=== PATIENT | female | born 1960 | race Caucasian/White ===

== ENCOUNTER 2018-04-02 10:31 | Outpatient (CLI) | payer MEDICARE | END 2018-04-02 10:32 | disposition critical access hospital (66) | LOC: EMS 10:31 | PROVIDERS: ATTEND Surgery | DX: R41.82 Altered mental status, unspecified (principal) | CPT/HCPCS: A0425; A0429 ==

== ENCOUNTER 2018-04-02 11:08 | Emergency (ER) | payer MEDICARE ==
[2018-04-02] MEDS ORDERED: ERYTHROMYCIN OPHTH OINT 1 GM TUBE RIGHTEYE STA (11:19)
--- NOTE | 2018-04-02 11:22 | ED Physician Documentation ---
History of Present Illness - Stated complaint Stated Complaint: SPIDER BITES - Additonal information Additional information: hx from pt 57 f BIBA for 3 concerns 1) right eye dc, no contacts, no trauma 2) sore throat and swollen nodes 3) skin lesions to face and dry skin to arms - has spiders in house but she has not seen them, wonders if they might be mites no fever Review of Systems Constitutional: denies: Fever Eyes: reports: Discharge, Irritation Throat: reports: Sore throat Skin: reports: Lesions Immunocompromised: denies: Immunocompromised PD PAST MEDICAL HISTORY - Past Medical History Psych: Depression, Anxiety, Post traumatic stress disorder Musculoskeletal: Chronic back pain - Past Surgical History Past Surgical History: Yes - Present Medications Home Medications: Ambulatory Orders Medication Instructions Recorded Confirmed Gabapentin 800 mg PO 04/10/14 09/03/14 Gabapentin 800 mg PO TID #30 tablet 04/10/14 09/03/14 Prazosin HCl 5 mg PO 04/10/14 09/03/14 Quetiapine Fumarate 300 mg PO 04/10/14 09/03/14 clonazePAM [Clonazepam] 1 mg PO 04/10/14 09/03/14 lamoTRIgine [Lamictal] 200 mg PO 04/10/14 09/03/14 Clindamycin [Cleocin] 300 mg PO Q6H 5 Days capsule 09/03/14 Erythromycin Base [Erythromycin] 1 applic OP Q4H #1 tub 04/02/18 Mupirocin Calcium [Bactroban] 1 applic TP BID #30 cream..g. 04/02/18 - Allergies Allergies/Adverse Reactions: Allergies Allergy/AdvReac Type Severity Reaction Status Date / Time Penicillins Allergy Unknown Verified 04/10/14 18:23 - Social History Does the pt smoke?: No Smoking Status: Never smoker Does the pt drink ETOH?: No Does the pt have substance abuse?: No - Immunizations Immunizations are current?: No PD ED PE NORMAL - Vitals Vital signs reviewed: Yes - HEENT HEENT: PERRL (globes soft, R eye injected with mucous dc), Moist mucous membranes. No: Pharynx benign (erythema s exudate) - Neck Neck: Supple, no meningeal sign. No: No adenopathy (anterior not posterior) - Cardiac Cardiac: RRR - Respiratory Respiratory: No respiratory distress, Clear bilaterally - Abdomen Abdomen: Non tender - Derm Derm: Other (blotchy small patches of erythema to face s abscess or open sores) Results - Vitals Vitals: Vital Signs - 24 hr 04/02/18 04/02/18 04/02/18 11:14 12:35 14:43 Temperature 37.2 C Heart Rate 102 H 89 99 Respiratory 16 16 14 Rate Blood Pressure 140/92 H 139/93 H 161/95 H O2 Saturation 97 98 97 Oxygen O2 Source Room air - Labs Labs: Microbiology 04/02/18 11:35 MRSA Screen - Preliminary Face - Wound Laboratory Tests 04/02/18 04/02/18 04/02/18 11:05 14:35 15:05 WBC 5.1 RBC 4.33 Hgb 12.8 Hct 37.6 MCV 86.7 MCH 29.5 MCHC 34.0 RDW 14.0 Plt Count 295 MPV 8.3 Neut # (Auto) 3.0 Lymph # (Auto) 1.7 [place] # (Auto) 0.3 Eos # (Auto) 0.0 Baso # (Auto) 0.0 Absolute Nucleated RBC 0.01 Nucleated RBC % 0.1 Manual Slide Review Indicated Platelet Estimate NORMAL (130-450,000) Platelet Morphology NORMAL APPEARANCE RBC Morph Micro Appear NORMAL APPEARANCE Sodium Potassium Chloride Carbon Dioxide Anion Gap BUN Creatinine Estimated GFR (MDRD) Glucose Calcium Total Bilirubin AST ALT Alkaline Phosphatase Total Protein Albumin Globulin Albumin/Globulin Ratio Lipase TSH Urine Color YELLOW Urine Clarity CLEAR Urine pH 8.0 H Ur Specific [place] 1.010 Urine Protein NEGATIVE Urine Glucose (UA) NEGATIVE Urine Ketones NEGATIVE Urine Occult Blood NEGATIVE Urine Nitrite NEGATIVE Urine Bilirubin NEGATIVE Urine Urobilinogen 0.2 (NORMAL) Ur Leukocyte Esterase NEGATIVE Ur Microscopic Review NOT INDICATED Urine Culture Comments NOT INDICATED Urine Opiates Screen NEGATIVE Ur Oxycodone Screen POSITIVE H Urine Methadone Screen NEGATIVE Ur Propoxyphene Screen NEGATIVE Ur Barbiturates Screen NEGATIVE Ur Tricyclics Screen POSITIVE H Ur Phencyclidine Scrn NEGATIVE Ur Amphetamine Screen NEGATIVE U Methamphetamines Scrn NEGATIVE U Benzodiazepines Scrn NEGATIVE Urine Cocaine Screen NEGATIVE U Cannabinoids Screen NEGATIVE Ethyl Alcohol Group A Strep Rapid Negative 04/02/18 04/02/18 04/02/18 15:05 15:05 15:05 WBC RBC Hgb Hct MCV MCH MCHC RDW Plt Count MPV Neut # (Auto) Lymph # (Auto) [place] # (Auto) Eos # (Auto) Baso # (Auto) Absolute Nucleated RBC Nucleated RBC % Manual Slide Review Platelet Estimate Platelet Morphology RBC Morph Micro Appear Sodium 134 L Potassium 3.2 L Chloride 98 L Carbon Dioxide 26 Anion Gap 10.0 BUN 6 Creatinine 0.5 Estimated GFR (MDRD) 128 Glucose 101 H Calcium 9.4 Total Bilirubin 0.4 AST 67 H ALT 58 Alkaline Phosphatase 50 Total Protein 7.8 Albumin 4.6 Globulin 3.2 Albumin/Globulin Ratio 1.4 Lipase 32 TSH 0.65 Urine Color Urine Clarity Urine pH Ur Specific [place] Urine Protein Urine Glucose (UA) Urine Ketones Urine Occult Blood Urine Nitrite Urine Bilirubin Urine Urobilinogen Ur Leukocyte Esterase Ur Microscopic Review Urine Culture Comments Urine Opiates Screen Ur Oxycodone Screen Urine Methadone Screen Ur Propoxyphene Screen Ur Barbiturates Screen Ur Tricyclics Screen Ur Phencyclidine Scrn Ur Amphetamine Screen U Methamphetamines Scrn U Benzodiazepines Scrn Urine Cocaine Screen U Cannabinoids Screen Ethyl Alcohol < 5.0 Group A Strep Rapid PD MEDICAL DECISION MAKING - ED course ED course: pt would like to be cultured for mites explained that is not a test provided in the ED will swab for MRSA and strep throat and tx conjunctivitis emycin for conjunctivitis rapid strep neg - cx pending MRSA swab pending - will rx bactroban went to talk to pt about dc she is very anxious she feels she needs blood work and to be admitted to the hospital - states these sx have been going for months, but worse X weeks she says she can feel magnetic cooper pulling around her face and that she can reach out a wipe away webs that seem to pull out from her eyes, and she is concerned her water in contaminated so she has been shampooing with dishwashing detergent and has also used foaming soas and pore cleansers and been applying olive oil - I suggested maybe these were contributing to her skin irritation but she thinks not, she thinks there be husks in /on her skin causing irritation - she keeps reaching for things in front of her face that i can not see - I asked if she though she might have psychosis or hallucinations but she says that is not the problem though she has possibly had schizophrenia in the past - she says her actions are bothering her friends which is likely the reason the ambulance actually got called today will have social work consult for [facility] - pt not happy about this as she does not think she has psychosis, but she does agree SW saw pt and agrees she is suffering from psychosis and merits voluntary inpt mental health care - pt is not having command auditory hallucinations or verbalizing plan to harm self or others - and SW does not feel she is gravely disabled- not invol - but agrees and is willing to go to inpt mental health - SW states Mya Powell is reviewing case - pt asked to take her own home psych meds which brought with her turned over to next shift Dr Thomas pending placement - Sepsis Event Vital Signs: Vital Signs - 24 hr 04/02/18 04/02/18 04/02/18 11:14 12:35 14:43 Temperature 37.2 C Heart Rate 102 H 89 99 Respiratory 16 16 14 Rate Blood Pressure 140/92 H 139/93 H 161/95 H O2 Saturation 97 98 97 Oxygen O2 Source Room air Departure - Departure Clinical Impression: Rash Conjunctivitis Qualifiers: Conjunctivitis type: acute Acute conjunctivitis type: unspecified Laterality: right Qualified Code(s): H10.31 - Unspecified acute conjunctivitis, right eye Psychosis Qualifiers: Psychosis type: other Qualified Code(s): F28 - Other psychotic disorder not due to a substance or known physiological condition Condition: Good Instructions: ED Conjunctivitis Nonspecific Follow-Up: Sung Moscoso MD [Primary Care Provider] - Prescriptions: Erythromycin Base [Erythromycin] 1 applic OP Q4H #1 tub Mupirocin Calcium [Bactroban] 1 applic TP BID #30 cream..g. Comments: The throat swab was negative - an official throat culture will also be run and the ER staff will call you if oral antibiotics are needed Use the erythromycin eye ointment every 4 hr while awake for the next week Apply the bactroban cream to the spots on your face for a week or until better If you are not improving within 3 days please follow up with your PMD
[2018-04-02] MEDS ORDERED: MUPIROCIN 2% OINT 1 GM TOP STA (13:21)
[2018-04-02 15:15] LABS: MUDS CUTOFF CONCENTRATIONS CUTOFF CONC BELOW:
[2018-04-02 15:23] LABS: BILIRUBIN,URINE NEGATIVE (NEGATIVE); GLUCOSE, URINE (UA) NEGATIVE (NEGATIVE); KETONES,URINE (UA) NEGATIVE (NEGATIVE); LEUKOCYTE ESTERASE, URINE NEGATIVE (NEGATIVE); NITRITE,URINE NEGATIVE (NEGATIVE); OCCULT BLOOD,URINE NEGATIVE (NEGATIVE); PROTEIN,URINE NEGATIVE (NEGATIVE); UROBILINOGEN,URINE 0.2 (NORMAL) E.U./dL (NORMAL)
[2018-04-02 15:26] LABS: ALBUMIN 4.6 g/dL (3.2-5.5); ALBUMIN/GLOBULIN RATIO 1.4 (1.0-2.2); BILIRUBIN,TOTAL 0.4 mg/dL (0.2-1.0); CALCIUM 9.4 mg/dL (8.5-10.3); CREATININE 0.5 mg/dL (0.4-1.0); TOTAL PROTEIN 7.8 g/dL (6.7-8.2)
[2018-04-02 15:34] LABS: CLARITY,URINE CLEAR (CLEAR)
[2018-04-02 15:35] LABS: AMPHETAMINE SCREEN,URINE NEGATIVE (NEGATIVE); BENZODIAZEPINES SCREEN, URINE NEGATIVE (NEGATIVE); COCAINE SCREEN URINE NEGATIVE (NEGATIVE); METHADONE SCREEN, URINE NEGATIVE (NEGATIVE); METHAMPHETAMINES SCREEN, URINE NEGATIVE (NEGATIVE); OPIATE SCREEN, URINE NEGATIVE (NEGATIVE); OXYCODONE SCREEN, URINE POSITIVE (NEGATIVE); PROPOXYPHENE SCREEN, URINE NEGATIVE (NEGATIVE); TRICYCLIC ANTIDEPRESSANT,URINE POSITIVE (NEGATIVE)
[2018-04-02] MEDS ORDERED: POTASSIUM CHLORIDE 20 MEQ TABLET PO STA (15:46)
[2018-04-02 15:47] LABS: BASOPHILS % (AUTO) 0.6 %; EOSINOPHILS % (AUTO) 0.3 %; HGB - HEMOGLOBIN 12.8 g/dL (12.0-16.0); LYMPHOCYTES # (AUTO) 1.7 10^3/uL (1.5-3.5); LYMPHOCYTES % (AUTO) 33.9 %; MEAN CORPUSCULAR HEMOGLOBIN 29.5 pg (27.0-31.0); MEAN CORPUSCULAR VOLUME 86.7 fL (81.0-99.0); MEAN PLATELET VOLUME 8.3 fL (7.9-10.8); MONOCYTES # (AUTO) 0.3 10^3/uL (0.0-1.0); MONOCYTES % (AUTO) 5.4 %; NEUTROPHILS % (AUTO) 59.8 %; PLT - PLATELET COUNT 295 10^3/uL (130-450); RED BLOOD COUNT 4.33 10^6/uL (4.20-5.40); WHITE BLOOD COUNT 5.1 x10^3/uL (4.8-10.8)
[2018-04-02 16:04] LABS: PLATELET ESTIMATE, MANUAL NORMAL (130-450,000) (NORMAL); PLATELET MORPHOLOGY NORMAL APPEARANCE (NORMAL); RBC MORPHOLOGY (MULTIPLE) NORMAL APPEARANCE (NORMAL)
--- NOTE | 2018-04-02 23:05 | ED Physician Documentation ---
ED Addendum - Addendum Addendum: 04/02/18 23:03 57 year old female. Voluntary to [facility]. Accepted by [facility] Gonzalez. COBRA Forms completed. Departure - Departure Disposition: 65 Psych Hosp/Unit DC/Xfer Clinical Impression: Rash Conjunctivitis Qualifiers: Conjunctivitis type: acute Acute conjunctivitis type: unspecified Laterality: right Qualified Code(s): H10.31 - Unspecified acute conjunctivitis, right eye Psychosis Qualifiers: Psychosis type: other Qualified Code(s): F28 - Other psychotic disorder not due to a substance or known physiological condition Condition: Good Instructions: ED Conjunctivitis Nonspecific Follow-Up: Sung Moscoso MD [Primary Care Provider] - Prescriptions: Erythromycin Base [Erythromycin] 1 applic OP Q4H #1 tub Mupirocin Calcium [Bactroban] 1 applic TP BID #30 cream..g. Comments: The throat swab was negative - an official throat culture will also be run and the ER staff will call you if oral antibiotics are needed Use the erythromycin eye ointment every 4 hr while awake for the next week Apply the bactroban cream to the spots on your face for a week or until better If you are not improving within 3 days please follow up with your PMD
[2018-04-03 09:17] VITALS: BP 133/81
== END 2018-04-03 09:47 ==
LOC: EDUNIT# → ED 11:08
DX: R21 Rash and other nonspecific skin eruption (principal); H10.9 Unspecified conjunctivitis; F28 Other psychotic disorder not due to a substance or known physiological condition; F41.9 Anxiety disorder, unspecified; F43.10 Post-traumatic stress disorder, unspecified; Z75.1 Person awaiting admission to adequate facility elsewhere; F32.9 Major depressive disorder, single episode, unspecified
CPT/HCPCS: 36415; 80053; 81003; 83690; 84443; 85025; 87070; 87081; 87181; 87430; 93005; 99284; 99285; A9270; J3490; 80306; 80320; 81001; 87086

== ENCOUNTER 2023-06-24 10:15 | Outpatient (CLI) | payer MEDICARE | END 2023-06-24 23:59 | disposition critical access hospital (66) | LOC: EMS 10:15 | DX: R10.13 Epigastric pain (principal); M79.89 Other specified soft tissue disorders; R42 Dizziness and giddiness; R07.89 Other chest pain | CPT/HCPCS: A0425; A0429 ==

== ENCOUNTER 2023-06-24 10:51 | Emergency (ER) | payer MEDICARE ==
--- NOTE | 2023-06-24 11:46 | ED Physician Documentation ---
PD HPI ABD PAIN - Stated complaint Stated Complaint: ABD PX - Chief complaint Chief Complaint: Abd Pain - History obtained from History obtained from: Patient - Additional information Additional information: 62-year-old woman presents with complaints of what she thinks has been heartburn for last 2 and half weeks. A very sharp midsternal pain that resolved immediately upon ingestion of sodium bicarbonate. She would have every day and she has no history of reflux prior to this. Over the last 3 days it has been worse with a sensation of actual reflux and no longer responsive to sodium bicarbonate. She feels extra [place] after taking sodium bicarbonate (which I discussed with her as not unexpected.) Her bowel movements have been normal but she does feel extra gassy. She notes abdominal bloating for 5 years and also pedal edema of the same length of time which she is already on a diuretic, hydrochlorothiazide 4. PD PAST MEDICAL HISTORY - Past Medical History Psych: Depression, Anxiety, Post traumatic stress disorder Musculoskeletal: Chronic back pain - Past Surgical History Past Surgical History: Yes - Present Medications Home Medications: Ambulatory Orders Medication Instructions Recorded Confirmed Gabapentin 800 mg PO 04/10/14 09/03/14 Gabapentin 800 mg PO TID #30 tablet 04/10/14 09/03/14 Prazosin HCl 5 mg PO 04/10/14 09/03/14 Quetiapine Fumarate 300 mg PO 04/10/14 09/03/14 clonazePAM [Clonazepam] 1 mg PO 04/10/14 09/03/14 lamoTRIgine [Lamictal] 200 mg PO 04/10/14 09/03/14 Clindamycin [Cleocin] 300 mg PO Q6H 5 Days capsule 09/03/14 Erythromycin Base [Erythromycin] 1 applic OP Q4H #1 tub 04/02/18 Mupirocin Calcium [Bactroban] 1 applic TP BID #30 cream..g. 04/02/18 Omeprazole 40 mg PO DAILY #30 cap 06/24/23 - Allergies Allergies/Adverse Reactions: Allergies Allergy/AdvReac Type Severity Reaction Status Date / Time Penicillins Allergy Unknown Verified 04/10/14 18:23 - Social History Does the pt smoke?: No Smoking Status: Never smoker Does the pt drink ETOH?: No Does the pt have substance abuse?: No - Immunizations Immunizations are current?: No - POLST Patient has POLST: No PD ED PE NORMAL - Vitals Vital signs reviewed: Yes - General General: Alert and oriented X 3, No acute distress - Neck Neck: Supple, no meningeal sign - Cardiac Cardiac: RRR, No murmur - Respiratory Respiratory: No respiratory distress, Clear bilaterally - Abdomen Abdomen: Soft, Non tender - Derm Derm: Normal color, Warm and dry - Extremities Extremities: Other (1+ pitting pedal edema with mild venous stasis changes.) - Neuro Neuro: Alert and oriented X 3, Normal speech Results - Vitals Vitals: Vital Signs - 24 hr 06/24/23 06/24/23 06/24/23 11:00 13:05 15:00 Temperature 37 C Heart Rate 94 88 96 Respiratory 18 18 23 Rate Blood Pressure 151/85 H 147/87 H O2 Saturation 98 99 98 Oxygen O2 Source Room air - EKG (time done) 1341 EKG releavant findings:: EKG personally interpreted by author of this note. Relevant findings are: Rate: Rate (enter#) (95) Rhythm: NSR [place]: Normal Intervals: Normal [place] QRS: Normal - Labs Labs: Laboratory Tests 06/24/23 06/24/23 12:22 12:22 WBC 7.6 RBC 4.53 Hgb 13.3 Hct 40.7 MCV 89.8 MCH 29.4 MCHC 32.7 RDW 12.5 Plt Count 283 MPV 10.0 Neut # (Auto) 5.6 Lymph # (Auto) 1.7 [place] # (Auto) 0.2 Eos # (Auto) 0.0 Baso # (Auto) 0.0 Absolute Nucleated RBC 0.00 Nucleated RBC % 0.0 Sodium 138 Potassium 3.5 Chloride 98 L Carbon Dioxide 29 Anion Gap 11.0 BUN 8 Creatinine 0.9 Estimated GFR (MDRD) 64 L Glucose 116 H Calcium 10.3 Total Bilirubin 0.6 AST 36 ALT 40 Alkaline Phosphatase 57 Troponin I High Sens 7.1 Total Protein 8.0 Albumin 4.6 Globulin 3.4 Albumin/Globulin Ratio 1.4 Lipase 34 - Rads (name of study) Single view chest x-ray is unremarkable Relevant Findings:: Final report received, EMP independent interpretation of test abd CT Relevant Findings:: Final report received, EMP independent interpretation of test PD Medical Decision Making - ED course ED course: She has atypical chest pain that is certainly sounding like GERD, but getting decreasing relief from sodium bicarbonate which is also causing her side effects of gassiness. 62-year-old woman presents with ongoing reflux symptoms. ACS is considered but EKG and troponin were nonischemic. She has been self-medicating with sodium bicarbonate which was effective but then it was making her gassy and now is having increased acid. Discussed with her that a PPI would be more appropriate. She very much wanted abdominal imaging as she was worried about the 5 years that she has had of bloating. This was done and CT with IV contrast demonstrates hepatic steatosis and a small hiatal hernia with no other acute abnormalities. She was relieved. Departure - Departure Disposition: Home, Self Care Clinical Impression: GERD (gastroesophageal reflux disease) Qualifiers: Esophagitis presence: without esophagitis Qualified Code(s): K21.9 - Gastro- esophageal reflux disease without esophagitis Abdominal pain Qualifiers: Abdominal location: epigastric Qualified Code(s): R10.13 - Epigastric pain Condition: Good Record reviewed to determine appropriate education?: Yes Instructions: GERD Dc Prescriptions: Omeprazole 40 mg PO DAILY #30 cap Comments: As discussed, we checked for signs of heart attack today and there were none. But given your particular symptoms it sounded more like you are having reflux/GERD and you were getting relief with sodium bicarbonate but that became ineffective over time and started giving you some other side effects. For this we are starting a proton pump inhibitor and I sent the prescription electronically to [facility] in [place]. As discussed your CAT scan did not show anything serious but you did have a small hiatal hernia and a fatty liver. Avoid alcohol. Call your doctor to arrange a follow-up appointment, make the next available appointment. In the interim, return anytime if worse or if new symptoms develop. Forms: PCP List
--- NOTE | 2023-06-24 12:18 | XRAY Report ---
PROCEDURE: Chest 1 View X-Ray INDICATIONS: Chest Pain TECHNIQUE: One view of the chest was acquired. COMPARISON: None. FINDINGS: Surgical changes and devices: None. Lungs and pleura: No pleural effusions or pneumothorax. Lungs are clear. Mediastinum: Mediastinal contours appear normal. Heart size is normal. Bones and chest wall: No suspicious bony lesions. Overlying soft tissues appear unremarkable. IMPRESSION: No acute cardiopulmonary process. Reviewed by: Beverley Vieyra MD on 06/24/2023 12:17 PM [facility] Approved by: Beverley Vieyra MD on 06/24/2023 12:17 PM [facility] Station ID: [id number]
[2023-06-24 12:28] LABS: BASOPHILS % (AUTO) 0.5 %; EOSINOPHILS % (AUTO) 0.3 %; HCT - HEMATOCRIT 40.7 % (37.0-47.0); HGB - HEMOGLOBIN 13.3 g/dL (12.0-16.0); LYMPHOCYTES # (AUTO) 1.7 10^3/uL (1.5-3.5); LYMPHOCYTES % (AUTO) 22.1 %; MEAN CORPUSCULAR HEMOGLOBIN 29.4 pg (27.0-31.0); MEAN CORPUSCULAR HGB CONC 32.7 g/dL (32.0-36.0); MEAN CORPUSCULAR VOLUME 89.8 fL (81.0-99.0); MONOCYTES # (AUTO) 0.2 10^3/uL (0.0-1.0); MONOCYTES % (AUTO) 2.9 %; NEUTROPHILS # (AUTO) 5.6 10^3/uL (1.5-6.6); NEUTROPHILS % (AUTO) 73.8 %; PLT - PLATELET COUNT 283 10^3/uL (130-450); RED BLOOD COUNT 4.53 10^6/uL (4.20-5.40); RED CELL DISTRIBUTION WIDTH 12.5 % (12.0-15.0); WHITE BLOOD COUNT 7.6 x10^3/uL (4.8-10.8)
[2023-06-24 12:41] LABS: ALBUMIN 4.6 g/dL (3.2-5.5)
[2023-06-24 12:43] LABS: ALBUMIN/GLOBULIN RATIO 1.4 (1.0-2.2); BILIRUBIN,TOTAL 0.6 mg/dL (0.2-1.0); CALCIUM 10.3 mg/dL (8.5-10.3); CREATININE 0.9 mg/dL (0.6-1.3); POTASSIUM 3.5 mmol/L (3.5-4.5)
[2023-06-24 12:47] LABS: TROPONIN I HIGH SENSITIVITY 7.1 ng/L (2.3-14.8)
[2023-06-24] MEDS ORDERED: iohexoL-300 100 ML VIAL IVP ONE (15:19)
--- NOTE | 2023-06-24 15:46 | CT Report ---
PROCEDURE: ABDOMEN/PELVIS W INDICATIONS: Upper abdominal pain for 2 days. CONTRAST: 100ml omni 300 TECHNIQUE: After the administration of IV contrast, 5 mm thick sections acquired from the diaphragms to the symp hysis. 5 mm thick coronal and sagittal reformats were acquired. For radiation dose reduction, the f ollowing was used: automated exposure control, adjustment of mA and/or kV according to patient size. COMPARISON: None. FINDINGS: Image quality: Excellent. Lung bases and heart: Unremarkable. Small hiatal hernia. Bilateral breast implants. Liver: Normal size. No solid mass. Moderate hepatic steatosis. Gallbladder and biliary tree: Normal gallbladder. No biliary dilation. Spleen: No splenomegaly. Pancreas: No pancreatic ductal dilation. Adrenals: No adrenal nodule. Kidneys and ureters: No hydronephrosis. No renal cystic lesion which requires follow up. No solid mas s. Bowel and peritoneum: No bowel distension. No pathologic free fluid. Normal appendix. Lymph nodes: No central or retroperitoneal adenopathy. Vessels: No infrarenal aortic aneurysm. PELVIS Reproductive organs: Unremarkable. Bladder: No abnormal wall thickening, accounting for underdistension. Pelvic lymph nodes: No pelvic adenopathy by size criteria. Bones: No aggressive osseous abnormality. Scoliosis. Moderate--to-severe degenerative disc and facet disease in lumbar spine. Other: There is a small fat-containing umbilical hernia. No inguinal hernia. IMPRESSION: 1. No acute abnormalities. 2. Small hiatal hernia. 3. Hepatic steatosis. Reviewed by: Beverley Vieyra MD on 06/24/2023 3:45 PM PST Approved by: Beverley Vieyra MD on 06/24/2023 3:45 PM PST Station ID: [id number]
[2023-06-24] MEDS ORDERED: PANTOPRAZOLE 40 MG TABLET PO STA (15:55)
[2023-06-24 15:57] VITALS: BP 147/87; O2SAT 98
== END 2023-06-24 16:14 | disposition home or self-care (01) ==
LOC: EDUNIT# → ED 10:51
DX: K21.9 Gastro-esophageal reflux disease without esophagitis (principal); R10.13 Epigastric pain
CPT/HCPCS: 36415; 71045; 74177; 80053; 83690; 84484; 85025; 93005; 99283; 99284; A9270; Q9967

== ENCOUNTER 2024-03-15 08:27 | Day surgery (SDC) | payer MEDICARE ==
[2024-03-15] MEDS ORDERED: PROPOFOL 500 MG/50 ML 500 MG/50 ML VIAL ONE (08:47)
[2024-03-15] MEDS ORDERED: LIDOCAINE-MPF 2% 5 ML VIAL ONE (08:47)
[2024-03-15] MEDS: LACTATED RINGERS 1,000 ML IV ONE ×2 (09:09→10:53)
--- NOTE | 2024-03-15 09:22 | ANESTHESIA ---
Pre-Anesthesia VS, & Labs - Diagnosis dysphagia, screening - Procedure EGD, colonoscopy Vital Signs: Temp Pulse Resp BP Pulse Ox O2 Flow Rate 36.6 C 90 16 145/94 H 98 03/15/24 08:45 03/15/24 08:45 03/15/24 08:45 03/15/24 08:45 03/15/24 08:45 Height: 5 ft 7 in Weight (kg): 86.2 kg Body Mass Index: 29.7 BMI Classification: Overweight - NPO Other (prep as directed) - Is Patient ?: No Home Medications and Allergies Gabapentin 800 mg PO 04/10/14 Prazosin HCl 5 mg PO 04/10/14 Quetiapine Fumarate 300 mg PO 04/10/14 clonazePAM [Clonazepam] 1 mg PO 04/10/14 lamoTRIgine [Lamictal] 200 mg PO 04/10/14 Allergies/Adverse Reactions: Allergies Allergy/AdvReac Type Severity Reaction Status Date / Time citalopram [From Celexa] Allergy Anxiety Verified 03/15/24 09:14 prednisone Allergy Unknown Verified 03/15/24 09:15 Anes History & Medical History - Anesthetic History Anesthesia Complications: reports: No previous complications - Medical History Cardiovascular: reports: High cholesterol Pulmonary: reports: None Gastrointestinal: reports: Hiatal hernia, Other Urinary: reports: None Musculoskeletal: reports: Chronic back pain Endocrine/Autoimmune: reports: None Smoking Status: Never smoker - Surgical History General: reports: Other Exam General: Alert, Oriented x3 Dental: WNL Mouth Opening: Greater than 4 Fingerbreadths Neck Mobility: Normal Mallampati classification: II Thyromental Distance: greater than 6 cm Respiratory: Lungs clear Cardiovascular: Regular rate Plan Anesthesia Type: Total IV Consent for Procedure(s) Verified and Reviewed: Yes Code Status: Attempt Resuscitation ASA classification: 2-Mild systemic disease Is this case an emergency?: No
[2024-03-15] MEDS ORDERED: PROPOFOL 200 MG/20 ML VIAL IVP ONE ×2 (10:12→10:26)
[2024-03-15] MEDS: ONDANSETRON 4 MG/2 ML VIAL IVP PRN (10:55)
[2024-03-15] MEDS ORDERED: ONDANSETRON 4 MG/2 ML VIAL ONE (10:55)
[2024-03-15] MEDS ORDERED: ePHEDrine 50 MG/ML VIAL IVP PRN (11:06)
[2024-03-15] MEDS ORDERED: fentaNYL 100 MCG/2 ML VIAL IVP PRN (11:06)
[2024-03-15] MEDS ORDERED: ATROPINE ABBOJECT 1 MG/10 ML SYRINGE IVP PRN (11:06)
[2024-03-15] MEDS ORDERED: MORPHINE 2 MG/ML CARPUJECT IVP PRN (11:06)
[2024-03-15] MEDS ORDERED: NALOXONE 0.4 MG/ML VIAL IVP PRN (11:06)
[2024-03-15] MEDS: IPRATROPIUM/ALBUTEROL 3 ML NEB INH PRN (11:20)
[2024-03-15] MEDS ORDERED: HYDROmorphone 2 MG TABLET ONE (11:56)
[2024-03-15] MEDS ORDERED: LACTATED RINGERS 1,000 ML IV SCH (12:00)
[2024-03-15] MEDS ORDERED: HYDROmorphone 0.5 MG/0.5 ML SYRINGE ONE (12:03)
[2024-03-15] MEDS: HYDROmorphone 0.5 MG/0.5 ML SYRINGE IVP PRN (12:04)
[2024-03-15] MEDS: DEXAMETHASONE 10 MG/ML VIAL ONE (12:10)
--- NOTE | 2024-03-15 14:21 | ANESTHESIA POST OP EVALUATION ---
Anesthesia Post Eval - Post Anesthesia Eval Vitals: Last Vital Signs Temp 36.7 C 03/15/24 12:55 Pulse 122 H 03/15/24 13:25 Resp 18 03/15/24 13:25 BP 144/90 H 03/15/24 13:25 Pulse Ox 94 03/15/24 13:25 O2 Flow Rate CV Function Including HR & BP: Stable (Patient aspirated during elective EGD, after several hours in SDS still requiring O2 NC to maintain Sats in the 90's with mild tachycardia and coughing. Dr. Alejandro will admit overnight for observation.) Pain Control: Satisfactory Nausea & Vomiting: Addtional Therapies Ordered Mental Status: Baseline, Patient Participates Respiratory Status: Other Hydration Status: Satisfactory Anesthesia Complications: Other
[2024-03-15] MEDS: GABAPENTIN 300 MG CAPSULE PO SCH (14:28)
[2024-03-15] MEDS: DEXAMETHASONE 10 MG/ML VIAL IVP ONE (15:34)
[2024-03-15] MEDS: METOPROLOL SUCCINATE 25 MG TABLET PO PRN (16:56)
[2024-03-15] MEDS: ACETAMINOPHEN 500 MG TABLET PO PRN (16:57)
[2024-03-15] MEDS: PRAZOSIN 1 MG CAPSULE PO SCH (20:04)
[2024-03-15] MEDS: PANTOPRAZOLE 40 MG TABLET PO SCH (20:05)
[2024-03-15] MEDS: QUEtiapine 100 MG TABLET PO SCH (21:19)
[2024-03-15] MEDS: BENZOCAINE/MENTHOL LOZENGE MM PRN (22:05)
[2024-03-15] MEDS: clonazePAM 0.5 MG TABLET PO PRN (23:40)
--- NOTE | 2024-03-16 08:39 | PROVIDER PROGRESS NOTE ---
Subjective - Subjective Pt reports feeling: Improved (breathing much improved. she feels a little unsteady on her feet) Objective - Vital Signs/Intake & Output Vital Signs: Vital Signs x48h Temp Pulse Pulse Resp BP Pulse Ox O2 Flow Rate 03/16/24 07:40 36.9 C 96 18 117/61 95 03/16/24 05:29 36.4 C L 86 18 104/61 96 2 03/16/24 02:50 94 2 03/16/24 02:45 87 L 03/16/24 02:05 88 18 Intake & Output: Intake & Output 03/13/24 03/14/24 03/15/24 03/16/24 23:59 23:59 23:59 23:59 Intake Total 1345 150 Balance 1345 150 - Objective General Appearance: positive: No acute distress, Alert Eyes Bilateral: positive: PERRL, EOMI ENT: positive: No signs of dehydration Neck: positive: No JVD, Trachea midline Respiratory: positive: No respiratory distress Abdomen: positive: No distention Neurologic/Psychiatric: positive: Oriented x3 Assessment/Plan - Problem List (1) GERD (gastroesophageal reflux disease) Impression: aspiration around time of egd and colonoscopy yesterday. she is much improved today. home when ambulating safely.
[2024-03-16] MEDS: lamoTRIgine 100 MG TABLET PO SCH (09:01)
[2024-03-16 12:47] VITALS: BP 115/72; O2SAT 92
== END 2024-03-16 13:10 | disposition home or self-care (01) ==
LOC: SDS 08:27 → MS2 13:46 → SDS 03-16 13:10
PROVIDERS: ATTEND Surgery
PROC: 0DB38ZX Excision of Lower Esophagus, Via Natural or Artificial Opening Endoscopic, Diagnostic (ICD-10-PCS; 2024-03-15)
PROC: 0DB68ZX Excision of Stomach, Via Natural or Artificial Opening Endoscopic, Diagnostic (ICD-10-PCS; 2024-03-15)
PROC: 0DB28ZX Excision of Middle Esophagus, Via Natural or Artificial Opening Endoscopic, Diagnostic (ICD-10-PCS; 2024-03-15)
PROC: 0DBK8ZX Excision of Ascending Colon, Via Natural or Artificial Opening Endoscopic, Diagnostic (ICD-10-PCS; principal; 2024-03-15 09:30)
PROC: 0DBM8ZX Excision of Descending Colon, Via Natural or Artificial Opening Endoscopic, Diagnostic (ICD-10-PCS; 2024-03-15 09:30)
DX: Z12.11 Encounter for screening for malignant neoplasm of colon (principal); D12.2 Benign neoplasm of ascending colon; D12.4 Benign neoplasm of descending colon; K22.10 Ulcer of esophagus without bleeding; K44.9 Diaphragmatic hernia without obstruction or gangrene
CPT/HCPCS: 43239; 45385; 94640; A9270; J1170; J7120